=== PATIENT | female | born 1985 | race American Indian/Alaskan Native ===

== ENCOUNTER 2018-05-13 11:22 | Emergency (ER) | payer MEDICAID ==
--- NOTE | 2018-05-13 11:45 | Emergency Department Report ---
Chief Complaint: Sore Throat Stated Complaint: THROAT PAIN/BODY PAIN Time Seen by Provider: 05/13/18 11:39 - HPI History of Present Illness: Pt is c/o sore throat x 2 days pain with swallowing, generalized body aches, rhinorrhea, congestion tried taking theraflu (+)fever at home 102 pt states she took tylenol this morning at 8 am swapped pt for rapid strep and sent sample MSE complete MSE screening note: Focused history and physical exam performed. Due to findings the following was ordered: rapid strep, flu ED Disposition for MSE Condition: Stable
[2018-05-13] MEDS ORDERED: MORPHINE IV ONE ×2 (12:56→15:10)
[2018-05-13] MEDS ORDERED: ZOFRAN IV ONE ×2 (12:56→15:10)
[2018-05-13 13:34] LABS: Hematocrit 34.8 % (30.3-42.9); Hemoglobin 12.2 gm/dl (10.1-14.3); Mean Corpuscular HGB Conc 35 % (30-34); Mean Corpuscular Volume 88 fl (79-97); Platelet Count 278 K/mm3 (140-440); Red Blood Count 3.96 M/mm3 (3.65-5.03); Red Cell Distribution Width 15.3 % (13.2-15.2)
[2018-05-13 13:45] LABS: INR 0.99 (0.87-1.13); Partial Thromboplastin Time 27.7 Sec. (24.2-36.6)
[2018-05-13 13:50] LABS: Alanine Aminotransferase 10 units/L (7-56); Albumin 3.8 g/dL (3.9-5); BUN/Creatinine Ratio 10; Blood Urea Nitrogen 7 mg/dL (7-17); Calcium 8.8 mg/dL (8.4-10.2); Hemolysis Index 5
[2018-05-13 13:54] LABS: HCG Qualitative,Urine Negative (Negative)
[2018-05-13 13:58] LABS: Bacteria,Urine 1+ /HPF (Negative); Bilirubin,Urine NEG (Negative); Blood,Urine NEG (Negative); Color,Urine Yellow (Yellow); Mucus,Urine FEW /HPF; Protein,Urine <15 mg/dL mg/dL (Negative); Urobilinogen,Urine < 2.0 mg/dL (<2.0)
--- NOTE | 2018-05-13 14:05 | Emergency Department Report ---
ED General Adult HPI - General Chief complaint: Sore Throat Stated complaint: THROAT PAIN/BODY PAIN Time Seen by Provider: 05/13/18 11:39 Source: patient Mode of arrival: Ambulatory Limitations: No Limitations - History of Present Illness Initial comments: The patient presents to the emergency department with chief complaint of a sore throat 2 days. Patient also complains of her neck swelling below her chin as well and is having difficulty opening her mouth completely or swallowing. Patient also endorses having a fever. -: Gradual Location: mouth Severity scale (0 -10): 10 Quality: aching, sharp Consistency: constant Improves with: none Worsens with: none Associated Symptoms: denies other symptoms Treatments Prior to Arrival: none - Related Data Previous Rx's Medication Instructions Recorded Last Taken Type Ciprofloxacin HCl [Cipro] 500 mg PO Q12H #14 tab 08/03/14 Unknown Rx Phenazopyridine HCl [Pyridium] 200 mg PO TID #10 tablet 08/03/14 Unknown Rx Amoxicillin/Potassium Clav 1 each PO BID #12 tablet 05/13/18 Unknown Rx [Augmentin 875-125 Tablet] HYDROcodone/APAP 5-325 [[place] 1 each PO Q6HR PRN #12 tablet 05/13/18 Unknown Rx 5/325] Ibuprofen [Motrin] 800 mg PO Q8HR PRN #30 tablet 05/13/18 Unknown Rx Allergies Allergy/AdvReac Type Severity Reaction Status Date / Time apple Allergy Swelling Verified 08/03/14 06:46 ED Review of Systems ROS: Stated complaint: THROAT PAIN/BODY PAIN Other details as noted in HPI Comment: All other systems reviewed and negative Constitutional: denies: chills, fever Eyes: denies: eye pain, eye discharge, vision change ENT: throat pain. denies: ear pain Respiratory: denies: cough, shortness of breath, wheezing Cardiovascular: denies: chest pain, palpitations Endocrine: no symptoms reported Gastrointestinal: denies: abdominal pain, nausea, diarrhea Genitourinary: denies: urgency, dysuria, discharge Musculoskeletal: denies: back pain, joint swelling, arthralgia Skin: denies: rash, lesions Neurological: denies: headache, weakness, paresthesias Psychiatric: denies: anxiety, depression Hematological/Lymphatic: denies: easy bleeding, easy bruising ED Past Medical Hx - Past Medical History Previous Medical History?: No - Surgical History Additional Surgical History: x 4 - Social History Smoking Status: Unknown if ever smoked Substance Use Type: None - Medications Home Medications: Home Medications Medication Instructions Recorded Confirmed Last Taken Type Ciprofloxacin HCl [Cipro] 500 mg PO Q12H #14 tab 08/03/14 Unknown Rx Phenazopyridine HCl [Pyridium] 200 mg PO TID #10 tablet 08/03/14 Unknown Rx Amoxicillin/Potassium Clav 1 each PO BID #12 tablet 05/13/18 Unknown Rx [Augmentin 875-125 Tablet] HYDROcodone/APAP 5-325 [[place] 1 each PO Q6HR PRN #12 tablet 05/13/18 Unknown Rx 5/325] Ibuprofen [Motrin] 800 mg PO Q8HR PRN #30 tablet 05/13/18 Unknown Rx ED Physical Exam - General Limitations: No Limitations General appearance: alert, in no apparent distress - Head Head exam: Present: atraumatic, normocephalic - Eye Eye exam: Present: normal appearance, PERRL, EOMI - ENT ENT exam: Present: mucous membranes moist, other (there is swelling to the submandibular region with trismus on exam with inflamed palatine tonsils with erythema and exudate. There is also submental lymphadenopathy. There is no hardening to the floor the mouth and it is not raised) - Neck Neck exam: Present: normal inspection - Respiratory Respiratory exam: Present: normal lung sounds bilaterally. Absent: respiratory distress, wheezes, rales, rhonchi - Cardiovascular Cardiovascular Exam: Present: regular rate, normal rhythm. Absent: systolic murmur, diastolic murmur, rubs, gallop - GI/Abdominal GI/Abdominal exam: Present: soft, normal bowel sounds. Absent: distended, tenderness - Extremities Exam Extremities exam: Present: normal inspection - Back Exam Back exam: Present: normal inspection - Neurological Exam Neurological exam: Present: alert, oriented X3, CN II-XII intact. Absent: motor sensory deficit - Psychiatric Psychiatric exam: Present: normal affect, normal mood - Skin Skin exam: Present: warm, dry, intact, normal color. Absent: rash ED Course Vital Signs 05/13/18 11:40 Temperature 99.8 F H Pulse Rate 84 Respiratory 16 Rate Blood Pressure 133/81 O2 Sat by Pulse 99 Oximetry ED Medical Decision Making - Lab Data Result diagrams: 05/13/18 13:11 05/13/18 13:11 Lab Results 05/13/18 05/13/18 05/13/18 Range/Units 13:11 13:11 13:11 WBC 23.0 H (4.5-11.0) K/mm3 RBC 3.96 (3.65-5.03) M/mm3 Hgb 12.2 (10.1-14.3) gm/dl Hct 34.8 (30.3-42.9) % MCV 88 (79-97) fl MCH 31 (28-32) pg MCHC 35 H (30-34) % RDW 15.3 H (13.2-15.2) % Plt Count 278 (140-440) K/mm3 Add Manual Diff Complete Total Counted 100 Seg Neuts % (Manual) 78.0 H (40.0-70.0) % Band Neutrophils % 1.0 % Lymphocytes % (Manual) 14.0 (13.4-35.0) % Reactive Lymphs % (Man) 0 % Monocytes % (Manual) 7.0 (0.0-7.3) % Eosinophils % (Manual) 0 (0.0-4.3) % Basophils % (Manual) 0 (0.0-1.8) % Metamyelocytes % 0 % Myelocytes % 0 % Promyelocytes % 0 % Blast Cells % 0 % Nucleated RBC % Not Reportable Seg Neutrophils # Man 17.9 H (1.8-7.7) K/mm3 Band Neutrophils # 0.2 K/mm3 Lymphocytes # (Manual) 3.2 (1.2-5.4) K/mm3 Abs React Lymphs (Man) 0.0 K/mm3 Monocytes # (Manual) 1.6 H (0.0-0.8) K/mm3 Eosinophils # (Manual) 0.0 (0.0-0.4) K/mm3 Basophils # (Manual) 0.0 (0.0-0.1) K/mm3 Metamyelocytes # 0.0 K/mm3 Myelocytes # 0.0 K/mm3 Promyelocytes # 0.0 K/mm3 Blast Cells # 0.0 K/mm3 WBC Morphology Not Reportable Hypersegmented Neuts Not Reportable Hyposegmented Neuts Not Reportable Hypogranular Neuts Not Reportable Smudge Cells Not Reportable Toxic Granulation Not Reportable Toxic Vacuolation Not Reportable Dohle Bodies Not Reportable Pelger-Huet Anomaly Not Reportable Micki Rods Not Reportable Platelet Estimate Appears normal Clumped Platelets Not Reportable Plt Clumps, EDTA Not Reportable Large Platelets Few Giant Platelets Not Reportable Platelet Satelliting Not Reportable Plt Morphology Comment Not Reportable RBC Morphology Not Reportable Dimorphic RBCs Not Reportable Polychromasia Not Reportable Hypochromasia Not Reportable Poikilocytosis Few Anisocytosis Not Reportable Microcytosis Not Reportable Macrocytosis Not Reportable Spherocytes Not Reportable Pappenheimer Bodies Not Reportable Sickle Cells Not Reportable Target Cells Not Reportable Tear Drop Cells Not Reportable Ovalocytes 1+ Helmet Cells Not Reportable Breen-Buckhead Bodies Not Reportable Emmet Rings Not Reportable Scar Cells Not Reportable Bite Cells Not Reportable Crenated Cell Not Reportable Elliptocytes Not Reportable Acanthocytes (Spur) Not Reportable Rouleaux Not Reportable Hemoglobin C Crystals Not Reportable Schistocytes Not Reportable Malaria parasites Not Reportable Preston Bodies Not Reportable Hem Pathologist Commnt No PT 13.7 (12.2-14.9) Sec. INR 0.99 (0.87-1.13) APTT 27.7 (24.2-36.6) Sec. Sodium 138 (137-145) mmol/L Potassium 3.5 L (3.6-5.0) mmol/L Chloride 100.2 (98-107) mmol/L Carbon Dioxide 29 (22-30) mmol/L Anion Gap 12 mmol/L BUN 7 (7-17) mg/dL Creatinine 0.7 (0.7-1.2) mg/dL Estimated GFR > 60 ml/min BUN/Creatinine Ratio 10 % Glucose 84 (65-100) mg/dL Calcium 8.8 (8.4-10.2) mg/dL Total Bilirubin 0.80 (0.1-1.2) mg/dL AST 16 (5-40) units/L ALT 10 (7-56) units/L Alkaline Phosphatase 67 (35-129) units/L Total Protein 7.1 (6.3-8.2) g/dL Albumin 3.8 L (3.9-5) g/dL Albumin/Globulin Ratio 1.2 % Urine Color (Yellow) Urine Turbidity (Clear) Urine pH (5.0-7.0) Ur Specific [place] (1.003-1.030) Urine Protein (Negative) mg/dL Urine Glucose (UA) (Negative) mg/dL Urine Ketones (Negative) mg/dL Urine Blood (Negative) Urine Nitrite (Negative) Ur Reducing Substances Urine Bilirubin (Negative) Urine Ictotest Urine Urobilinogen (<2.0) mg/dL Ur Leukocyte Esterase (Negative) Urine WBC (Auto) (0.0-6.0) /HPF Urine RBC (Auto) (0.0-6.0) /HPF U Epithel Cells (Auto) (0-13.0) /HPF Urine Bacteria (Auto) (Negative) /HPF Urine Mucus /HPF Urine HCG, Qual (Negative) Group A Strep Rapid (Negative) 05/13/18 05/13/18 Range/Units 13:13 Unknown WBC (4.5-11.0) K/mm3 RBC (3.65-5.03) M/mm3 Hgb (10.1-14.3) gm/dl Hct (30.3-42.9) % MCV (79-97) fl MCH (28-32) pg MCHC (30-34) % RDW (13.2-15.2) % Plt Count (140-440) K/mm3 Add Manual Diff Total Counted Seg Neuts % (Manual) (40.0-70.0) % Band Neutrophils % % Lymphocytes % (Manual) (13.4-35.0) % Reactive Lymphs % (Man) % Monocytes % (Manual) (0.0-7.3) % Eosinophils % (Manual) (0.0-4.3) % Basophils % (Manual) (0.0-1.8) % Metamyelocytes % % Myelocytes % % Promyelocytes % % Blast Cells % % Nucleated RBC % Seg Neutrophils # Man (1.8-7.7) K/mm3 Band Neutrophils # K/mm3 Lymphocytes # (Manual) (1.2-5.4) K/mm3 Abs React Lymphs (Man) K/mm3 Monocytes # (Manual) (0.0-0.8) K/mm3 Eosinophils # (Manual) (0.0-0.4) K/mm3 Basophils # (Manual) (0.0-0.1) K/mm3 Metamyelocytes # K/mm3 Myelocytes # K/mm3 Promyelocytes # K/mm3 Blast Cells # K/mm3 WBC Morphology Hypersegmented Neuts Hyposegmented Neuts Hypogranular Neuts Smudge Cells Toxic Granulation Toxic Vacuolation Dohle Bodies Pelger-Huet Anomaly Micki Rods Platelet Estimate Clumped Platelets Plt Clumps, EDTA Large Platelets Giant Platelets Platelet Satelliting Plt Morphology Comment RBC Morphology Dimorphic RBCs Polychromasia Hypochromasia Poikilocytosis Anisocytosis Microcytosis Macrocytosis Spherocytes Pappenheimer Bodies Sickle Cells Target Cells Tear Drop Cells Ovalocytes Helmet Cells Breen-Buckhead Bodies [place] Rings Scar Cells Bite Cells Crenated Cell Elliptocytes Acanthocytes (Spur) Rouleaux Hemoglobin C Crystals Schistocytes Malaria parasites Preston Bodies Hem Pathologist Commnt PT (12.2-14.9) Sec. INR (0.87-1.13) APTT (24.2-36.6) Sec. Sodium (137-145) mmol/L Potassium (3.6-5.0) mmol/L Chloride (98-107) mmol/L Carbon Dioxide (22-30) mmol/L Anion Gap mmol/L BUN (7-17) mg/dL Creatinine (0.7-1.2) mg/dL Estimated GFR ml/min BUN/Creatinine Ratio % Glucose (65-100) mg/dL Calcium (8.4-10.2) mg/dL Total Bilirubin (0.1-1.2) mg/dL AST (5-40) units/L ALT (7-56) units/L Alkaline Phosphatase (35-129) units/L Total Protein (6.3-8.2) g/dL Albumin (3.9-5) g/dL Albumin/Globulin Ratio % Urine Color Yellow (Yellow) Urine Turbidity Slightly-cloudy (Clear) Urine pH 5.0 (5.0-7.0) Ur Specific [place] 1.012 (1.003-1.030) Urine Protein <15 mg/dl (Negative) mg/dL Urine Glucose (UA) Neg (Negative) mg/dL Urine Ketones Neg (Negative) mg/dL Urine Blood Neg (Negative) Urine Nitrite Neg (Negative) Ur Reducing Substances Not Reportable Urine Bilirubin Neg (Negative) Urine Ictotest Not Reportable Urine Urobilinogen < 2.0 (<2.0) mg/dL Ur Leukocyte Esterase Neg (Negative) Urine WBC (Auto) 3.0 (0.0-6.0) /HPF Urine RBC (Auto) 1.0 (0.0-6.0) /HPF U Epithel Cells (Auto) 7.0 (0-13.0) /HPF Urine Bacteria (Auto) 1+ (Negative) /HPF Urine Mucus Few /HPF Urine HCG, Qual Negative (Negative) Group A Strep Rapid Negative (Negative) - Radiology Data Radiology results: report reviewed - Medical Decision Making Patient symmetrically improved after having IV fluids, IV Decadron, IV antibiotics Critical care attestation.: If time is entered above; I have spent that time in minutes in the direct care of this critically ill patient, excluding procedure time. ED Disposition Clinical Impression: Acute bacterial tonsillitis Disposition: TO HOME OR SELFCARE Is pt being admited?: No Does the pt Need Aspirin: No Condition: Stable Instructions: Tonsillitis (ED) Additional Instructions: return if worse Prescriptions: Amoxicillin/Potassium Clav [Augmentin 875-125 Tablet] 1 each PO BID #12 tablet Referrals: JOE BILLY MD [Primary Care Provider] - 3-5 Days [facility] [Provider Group] - 3-5 Days [facility] [Provider Group] - 3-5 Days [facility] [Outside] - 3-5 Days Time of Disposition: 16:51
--- NOTE | 2018-05-13 14:43 | Cat Scan Report ---
CT NECK WITH CONTRAST: HISTORY: Sore throat with submandibular swelling. TECHNIQUE: Helical CT following IV contrast. Sagittal and coronal reformatted images. FINDINGS: There appears to be moderate hypertrophy of the adenoid and palatine tonsils. The adenoid tonsil tissue measures up to 3 cm in thickness on the sagittal images. No peritonsillar abscess is identified. There are a few mildly enlarged right jugular lymph nodes measuring up to 1.9 cm in greatest dimension. No necrotic lymph nodes. These are probably reactive in nature. The epiglottis and laryngeal vestibule are unremarkable. Normal thyroid gland. The salivary glands are symmetric and unremarkable. The vascular structures are patent. The bony structures are unremarkable. IMPRESSION: Tonsillar hypertrophy as described but no mature peritonsillar abscess is demonstrated. Tonsillitis? Reactive right jugular lymph nodes.
[2018-05-13] MEDS ORDERED: NACL 0.9% 1000 ML 1,000 ML IV ONE (15:12)
[2018-05-13 15:50] LABS: Band Neutrophils # (Manual) 0.2 K/mm3; Basophils % (Manual) 0 % (0.0-1.8); Eosinophils % (Manual) 0 % (0.0-4.3); Total Cells Counted 100
[2018-05-13 15:51] LABS: Large Platelets Few; Ovalocytes 1+; Poikilocytosis Few
[2018-05-13] MEDS ORDERED: DECADRON 20 MG in NACL 0.9% 50 ML IV ONE (16:11)
[2018-05-13] MEDS ORDERED: UNASYN/NS 1.5 GM/50 ML 1.5 GM/50 ML BAG IV ONE (16:12)
[2018-05-13 17:18] VITALS: BP 115/75
== END 2018-05-13 17:18 | disposition home or self-care (01) ==
LOC: ED 11:22
DX: J03.80 Acute tonsillitis due to other specified organisms (principal); B96.89 Other specified bacterial agents as the cause of diseases classified elsewhere
CPT/HCPCS: 36415; 70491; 80053; 81001; 81025; 85007; 85025; 85610; 85730; 87116; 87400; 87430; 96365; 96368; 96375; 96376; 99284; J0295; J1100; J2270; J2405; J7030; Q9967